=== PATIENT | female | born 1940 | race Caucasian/White ===

== ENCOUNTER → 2016-08-30 | Outpatient (CLI) | payer MEDICARE ==
--- NOTE | 2016-08-30 22:13 | PN ---
This patient is being seen in the sleep center in followup regarding her obstructive sleep apnea. The patient underwent a recent home sleep study to reevaluate the severity of her ALONZO. Note that on an earlier study the patient had an AHI of 8.7. Her most recent home sleep study showed significant nocturnal oxygen desaturation; the patient spent approximately a third of her sleep time with a pulse ox of 90% and below. She was also found to have an AHI of 20, which is consistent with moderately severe disease. She has chronic atrial fibrillation, hypertension and chronic aortic insufficiency along with fibromyalgia and hypothyroidism. I thought restarting CPAP therapy would be crucial. I checked her CPAP machine, which was set at a pressure of 5 cm of water. I activated the Auto IQ feature of the CPAP machine for the next 30 days and will identify the P90 pressure and make the appropriate adjustments accordingly. She will be going back on her CPAP therapy for now. Her current Harrison score is 7. Results of the home sleep study were discussed with the patient at length, and all of her questions were answered appropriately. BP is 144/76, pulse 56, respiration 16, temperature 96.6. Weight is 165.8. Harrison score is 7. Saturation 95% on room air. GENERAL APPEARANCE: Calm, comfortable. HEENT: Negative for JVD. There is no goiter or neck masses. LUNGS: Clear to auscultation. HEART: Sounds are regular rate and rhythm. Normal S1, S2. ABDOMEN: Soft, nontender. No organomegaly. EXTREMITIES: No edema. No cyanosis or clubbing. IMPRESSION: 1. Symptomatic obstructive sleep apnea, moderate in severity, worse compared to original sleep study, and currently her AHI is up to 20 and she has demonstrated significant nocturnal oxygen desaturation. The patient spent approximately a third of her sleep time with a pulse ox of 90% and below. 2. Coronary artery disease with previous myocardial infarction. 3. Aortic insufficiency. 4. Fibromyalgia. 5. Hypothyroidism. PLAN: 1. Active Auto IQ feature for the next 30 days and obtain a P90 pressure. 2. Use a DreamWear nasal pillow. 3. Encourage weight loss. 4. See me back in 30 days to identify the P90 pressure and treat accordingly.
== END | disposition home or self-care (01) ==
LOC: SLEEP 13:41
PROVIDERS: ATTEND Internal Medicine Critical Care Medicine
DX: G47.33 Obstructive sleep apnea (adult) (pediatric) (principal); I25.10 Atherosclerotic heart disease of native coronary artery without angina pectoris; I25.2 Old myocardial infarction; I35.1 Nonrheumatic aortic (valve) insufficiency; M79.7 Fibromyalgia; E03.9 Hypothyroidism, unspecified

== ENCOUNTER → 2016-09-27 | Outpatient (CLI) | payer MEDICARE ==
--- NOTE | 2016-09-27 20:17 | PN ---
This is a pleasant 76-year-old female patient with known history of obstructive sleep apnea. The patient had mild disease years back and a subsequent sleep study showed worsening in her sleep apnea; the patient's AHI was up to 20. At that point I gave the patient a trial of Auto IQ CPAP therapy for a total of 30 days, and today she is coming in for followup. The patient has felt much better with this current feature, which is an automatic CPAP therapy with a minimum pressure of 4 and maximum pressure of 20. P90 pressure is around 10. Her apnea-hypopnea index is down to 2.9, and the patient is averaging around 6 hours and 24 minutes of CPAP use every night. Treatment has been successful. She is benefitting from CPAP therapy. She is waking up refreshed and alert and her sleep quality has improved considerably. BP is 135/75, pulse 80, respiratory rate 16, temperature 98.1. Weight is 166. BMI is 30.8. GENERAL APPEARANCE: Calm, comfortable. HEENT: Negative for goiter or neck mass. LUNGS: Clear to auscultation. HEART: Sounds are regular rate and rhythm. Normal S1, S2. No S3. No S4. No murmurs. ABDOMEN: Soft, nontender. No organomegaly. EXTREMITIES: No edema. No cyanosis or clubbing. IMPRESSION: 1. Symptomatic obstructive sleep apnea with an AHI of 20. The patient has been successful on Auto CPAP titration with a P90 pressure of 10. We utilized the Auto IQ feature on her CPAP machine. 2. Hypersomnia, improved. 3. Coronary artery disease. 4. Hypertension. 5. Atrial fibrillation. 6. Fibromyalgia. 7. Aortic insufficiency. PLAN: 1. Put the patient on a CPAP pressure of 10 cm of water. 2. Use the Dream Patel nasal pillows. 3. Clinically improved. 4. Edema 5. Demand compliancy. 6. See me back in followup.
== END | disposition home or self-care (01) ==
LOC: SLEEP 14:01
PROVIDERS: ATTEND Internal Medicine Critical Care Medicine
DX: G47.33 Obstructive sleep apnea (adult) (pediatric) (principal); G47.10 Hypersomnia, unspecified; I25.10 Atherosclerotic heart disease of native coronary artery without angina pectoris; I10 Essential (primary) hypertension; I48.91 Unspecified atrial fibrillation; M79.7 Fibromyalgia; I35.1 Nonrheumatic aortic (valve) insufficiency

== ENCOUNTER → 2016-12-27 | Outpatient (CLI) | payer MEDICARE ==
--- NOTE | 2016-12-30 16:50 | PN ---
This is a 76-year-old patient seeing me in followup regarding obstructive sleep apnea. She was last here approximately 4 months ago. She has symptomatic obstructive sleep apnea with an AHI of 20 and currently she is on a CPAP pressure of 8 cm of water. Based on her compliancy data over the past 90 days, the patient has shown excellent CPAP use. The average CPAP use has been approximately 6 hours and 44 minutes. The percentage of days with CPAP usage of more than 4 hours is 97.8%. The patient's treatment has been successful, with her AHI being down to 2.1. Her current [place] score is 6. Her main complaint is that the CPAP unit is not offering adequate humidity and humidification. She is waking up with a dry mouth. She has increased humidity in the unit; however, she has encountered increased fluid accumulation within the tubing, and the dryness in her mouth and nose has remained unchanged. She is a nose breather for now and she is using a [employer] nasal pillow. She is very interested in updating her CPAP machine. I am ordering a new CPAP machine for this patient, as long as this is covered by her medical insurance. BP is 125/67, pulse 59, respirations 14, temperature 97.3, saturation 95% on room air. Weight is 164. Height is 5 feet 1 inch. [place] score is 6. BMI is 30.4. GENERAL APPEARANCE: Calm, comfortable. HEENT: Negative for JVD. No goiter or neck masses. LUNGS: Clear to auscultation. HEART: Sounds are regular rate and rhythm. Normal S1, S2. No S3, S4. No murmurs. ABDOMEN: Soft, non-tender. No organomegaly. EXTREMITIES: No edema. No cyanosis or clubbing. IMPRESSION: 1. Symptomatic obstructive sleep apnea with an AHI of 20. The patient's treatment is successful, and her AHI is down to 2.1. Nevertheless, she is having issues with humidity, with the humidification and excessive mouth dryness. She is very interested in upgrading her CPAP unit to a new-generation ResMed unit. 2. Hypersomnia, improved. 3. Coronary artery disease. 4. Hypertension. 5. Paroxysmal atrial fibrillation. 6. Fibromyalgia. 7. Aortic insufficiency. PLAN: I told this patient that her current CPAP unit is working appropriately and the treatment has been successful. Her main issue was the lack of humidification, and she wants to improve her comfort while on treatment. As such , I ordered a used CPAP unit which will be a ResMed auto unit set at a pressure of 8. She will see me back in 3 to 4 months' time if she is able to obtain this new CPAP unit. If not, she can go back to utilizing her original CPAP unit with further adjustments in her humidity level. Will see her back in a few months' time for further advice. CINTHYA
== END | disposition home or self-care (01) ==
LOC: SLEEP 13:01
PROVIDERS: ATTEND Internal Medicine Critical Care Medicine
DX: G47.33 Obstructive sleep apnea (adult) (pediatric) (principal); G47.10 Hypersomnia, unspecified

== ENCOUNTER → 2017-01-18 | Outpatient (CLI) | payer MEDICARE ==
--- NOTE | 2017-01-18 13:28 | MR ---
EXAMINATION TYPE: MR lumbar spine wo con DATE OF EXAM: 01/18/2017 COMPARISON: NONE HISTORY: Herniated disc and low back and right leg pain per order. Back and leg pain since June 03 per patient. TECHNIQUE: Multiplanar, multisequence imaging of the lumbar spine is performed without IV contrast. FINDINGS: Sagittal images of the lumbar spine show vertebral body heights to appear satisfactory. The re is grade 1 anterolisthesis of L3 on L4. Multilevel disc desiccation is present. There is multileve l mild disc space narrowing. Multilevel small posterior disc herniations are seen on sagittal images most prominent L3-L4 level at site of spondylolisthesis. The conus medullaris is normal in position and signal ending at T12-L1 disc space level. The bone marrow signal intensity is overall heterogene ous. Hemangioma superior anterior left L2 endplate is noted. Mild multilevel anterior spurring is pre sent. Axial images at the T12-L1 and L1-L2 levels to appear to be within normal limits. Axial images at L2-L3 level show broad-based posterior disc protrusion effacing anterior thecal sac. There is mild facet degenerative changes and ligament flavum hypertrophy effacing posterior lateral t hecal sac, right greater than left. There is mild to moderate right and mild left-sided anterior infe rior neural foraminal narrowing. Axial images at L3-L4 level show moderate broad disc bulge effacing anterior thecal sac. There is mil d to moderate facet degenerative changes and ligament flavum hypertrophy effacing posterior lateral t hecal sac. Spondylolisthesis is present. There is mild left greater than right anterior-inferior neur al foraminal narrowing at this level identified. Axial images at L4-L5 level show mild to moderate facet degenerative changes bilaterally. There is br oad-based posterior disc protrusion. There is effacement of anterior posterior lateral thecal sac. Th ere is mild bilateral anterior inferior neural foraminal narrowing at this level identified. Axial images at L5-S1 level show mild to moderate facet degenerative changes bilaterally. There is ce ntral disc protrusion seen. Spinal canal is preserved and bilateral neural foramina are patent. There is 2 cm simple appearing cyst posteriorly mid pole level right kidney on axial image 17. There is prominence of bilateral renal pelvis, right greater than left suspect extrarenal pelvis. Slight ri ght-sided calyceal fullness is seen. Cannot exclude mild right-sided hydronephrosis. Consider ultraso und follow-up. IMPRESSION: Multilevel degenerative changes in the mid to lower lumbar spine as detailed above. Most prominent spinal canal effacement or stenosis is noted L3-L4 level. Further details are noted as disc ussed in body of report. Attention to kidneys discussed and end of report.
== END | disposition home or self-care (01) ==
LOC: RADMRIMAIN 12:09
PROVIDERS: ATTEND Psychiatry & Neurology Neurology
DX: M47.816 Spondylosis without myelopathy or radiculopathy, lumbar region (principal)
CPT/HCPCS: 72148

== ENCOUNTER → 2017-03-21 | Outpatient (CLI) | payer MEDICARE ==
--- NOTE | 2017-03-21 15:48 | PN ---
PROGRESS NOTE A 76-year-old female patient coming in for a compliancy check regarding ALONZO treatment. The patient has moderate to severe disease with an AHI of 20. The patient has been treated with a CPAP pressure of 8 cm of water. I saw this patient in December and I am seeing her today in followup after being given a new CPAP machine. His CPAP pressure was kept the same and the patient is using a Dream[employer] nasal pillow. She is using her CPAP every night. Her CPAP use for the past 30 days is above 95%. Average CPAP is around 7.5 hours per night. Her leak factor is 24 L/min and her AHI while on treatment is down to 1.7. She is benefitting from treatment and her Orland score is down to 5. Her weight has been stable. Her humidity, tube control and ramp time is automatic. She has no specific complaints for now. No other significant events over the past 24 hours. Her current vital signs: BP is 138/77, pulse 60, respirations 16, temperature is 98.3, Orland score is 5. Saturation is 95% on room air. Weight is 163. GENERAL APPEARANCE: Calm, comfortable. HEENT: Head is atraumatic, normocephalic. Neck is supple. There is no JVD, no goiter or neck masses. She has a Mallampati class IV. Lungs clear to auscultation. Heart sounds regular rate and rhythm. Normal S1, S2. No S3. No murmurs. Abdomen is soft, nontender. No organomegaly. Extremities no edema. No cyanosis or clubbing. Skin is negative. Neurologic, she is awake and alert x3, rule out any focal neurological deficits. IMPRESSION 1. Symptomatic obstructive sleep apnea with an apnea-hypopnea index of 20, currently on successful CPAP therapy at a pressure of 8 cm of water. The patient has a newer generation ResMed CPAP unit. 2. Hypersomnia improved and the Orland score is down to 5. 3. Coronary artery disease. 4. Hypertension. 5. Paroxysmal atrial fibrillation. 6. Fibromyalgia. 7. Aortic insufficiency. PLAN: 1. Continue CPAP with a pressure of 8. 2. Compliancy check was done and the data was reviewed. 3. Encourage weight loss. 4. Maintaining good sleep hygiene measures. 5. Treatment was successful and the patient is benefiting from treatment. See me back in a year's time or follow up earlier if needed. MMODL / IJN: [id number] /
== END | disposition home or self-care (01) ==
LOC: SLEEP 13:57
PROVIDERS: ATTEND Internal Medicine Critical Care Medicine
DX: G47.33 Obstructive sleep apnea (adult) (pediatric) (principal); G47.10 Hypersomnia, unspecified; I25.10 Atherosclerotic heart disease of native coronary artery without angina pectoris; I10 Essential (primary) hypertension; I48.0 Paroxysmal atrial fibrillation; M79.7 Fibromyalgia; I35.1 Nonrheumatic aortic (valve) insufficiency

== ENCOUNTER → 2018-05-15 | Outpatient (CLI) | payer MEDICARE ==
--- NOTE | 2018-05-15 17:12 | PN ---
PROGRESS NOTE 78-year-old female patient coming in for a compliancy check regarding her ALONZO treatment. This is her annual check up. Patient was last seen here approximately 1 1/2 years back. She has moderate to severe ALONZO with an AHI of 20 and the patient is currently on CPAP therapy. She has a ResMed unit and she is set on an APAP mode. Based on the compliance data, she is wearing her a APAP every night. Her compliance has been 100% and she is averaging more than 5 hours of a APAP use per night. She has lost weight in the order of 10 pounds. She used to weigh 164, she is currently down to 153. Her cardiac rhythm is still sinus. She is using a DreamWear small-size mask. Leak factor is 18 L/minute. AHI while on treatment is down to 0.8. No other complaints otherwise for now. BP is 137/73, pulse 56, respirations 16, temperature 97.2. Saturation 97% on room air. Weight is 154. Height is 5 feet 1 inches. General appearance: Calm, comfortable. Head is atraumatic, normocephalic. Neck is supple. There is no JVD. No goiter or neck masses. LUNGS: Clear to auscultation. Heart sounds are regular rate and rhythm. Normal S1, S2. No S3. No murmurs. Abdomen is soft, nontender. No organomegaly. EXTREMITIES: No edema. No cyanosis or clubbing. IMPRESSION: 1. Obstructive sleep apnea AHI of 21, currently on a APAP with a DreamWear small-size mask. Treatment has been successful. 2. Paroxysmal atrial fibrillation, current rhythm is sinus. 3. Coronary artery disease. 4. Hypertension. 5. Fibromyalgia. 6. Aortic insufficiency. PLAN: 1. Renew supplies. 2. Treatment is successful. 3. See me back in a year's time in follow up. MMODL / IJN: [id number] /
== END ==
LOC: SLEEP 13:01
PROVIDERS: ATTEND Internal Medicine Critical Care Medicine
DX: G47.33 Obstructive sleep apnea (adult) (pediatric) (principal); I48.0 Paroxysmal atrial fibrillation; I25.10 Atherosclerotic heart disease of native coronary artery without angina pectoris; I10 Essential (primary) hypertension; M79.7 Fibromyalgia; I35.1 Nonrheumatic aortic (valve) insufficiency; Z99.89 Dependence on other enabling machines and devices

== ENCOUNTER → 2019-05-21 | Outpatient (CLI) | payer MEDICARE ==
--- NOTE | 2019-05-21 17:18 | PN ---
PROGRESS NOTE Tani is 79 and she is coming in for a routine compliancy check regarding obstructive sleep apnea. The patient is looking well. Since her last evaluation, the patient has developed again atrial fibrillation and she has been followed up with Cardiology. She is being considered for ablation. She has been told by her EP artificial breeding technician that she may end up requiring a pacemaker post ablation. For now, her cardiac rhythm is atrial fibrillation and she is on a combination of medication, including metoprolol, Cardizem, Avapro for blood pressure and Aldactone. She is on long-term anticoagulation with Eliquis. In regard to her compliancy on her CPAP, the patient utilizes her CPAP every night on an average of 7.7 hours per night. CPAP use for more than 4 hours . Nevertheless, the patient's efficacy of treatment has gotten worse since her last evaluation. Her AHI while on treatment is at 8.7. Her leak is at 20 L/minute for now. She is using a DreamWear [id number] mask. I noticed that she was very well treated approximately a year ago; her AHI was less than 5. Over the past year she gradually developed some respiratory events. Nevertheless, based on her current CPAP machine I am unable to tell whether these are obstructive or central events. Her CPAP pressure is still adjusted at 8 cm of water. Otherwise she has no other complaints. She is waking up in the billet driller hours with hypertension. Immediately after she wakes up she checks her blood pressure and she is noted to have a significantly elevated BP. Obviously this would further raise the concern whether her sleep apnea has been effectively treated and whether she is having obstructive respiratory events in the billet driller hours. Her current Thomas Score is 6. REVIEW OF SYSTEMS: Fourteen-point review of systems was done. Positive findings were all mentioned above in the history of present illness. There is history of recent weight gain. She used to weigh 154 and currently she is up to 162. She was doing Weight Watchers but she has currently lost her diet control. As such, she has gained some weight. No nausea. No vomiting. No chest pain. Elevated blood pressure in the billet driller hours. At times she is having palpitations related to atrial fibrillation. No swelling in the lower extremities. Otherwise 14-point review of systems was done, and the positive findings are all mentioned above in the history of present illness. PHYSICAL EXAMINATION: VITAL SIGNS: BP is 132/82, pulse 56, respirations 16, temperature 97.5. Saturation 95% on room air. Height is 5 feet . Weight is 162. Thomas Score is 6. BMI 30.6. GENERAL APPEARANCE: Calm, comfortable. HEAD: Atraumatic, normocephalic. NECK: Supple. No JVD. No goiter or neck masses. LUNGS: Clear to auscultation. HEART: Heart sounds are irregular. Positive S1, S2. No S3, S4. No murmurs. ABDOMEN: Soft, nontender. No organomegaly. EXTREMITIES: No edema. No cyanosis or clubbing. NEUROLOGIC: Alert and oriented x3. No focal neurological deficits. PSYCHIATRIC: Negative for anxiety or depression. IMPRESSION: 1. Obstructive sleep apnea; apnea/hypopnea index of 20. Currently on CPAP pressure of 8. 2. grove superintendent hypertensive reaction. Exact cause is not clear. It could be related to obstructive respiratory events, especially as the patient's AHI while on treatment currently is 8.7, and this is based on the data was collected over the past 30 days. 3. Paroxysmal atrial fibrillation. Currently the patient is back to atrial fibrillation rhythm and she is being contemplated for ablation. This raises the possibility of central respiratory events that may be occurring overnight while on CPAP therapy. 4. Hypertension. 5. Coronary artery disease. PLAN: 1. I asked the patient to continue her CPAP therapy at a pressure of 8. 2. No adjustment in the pressure setting will be done. 3. The patient will be undergoing ablation. 4. If the hypertensive reaction continues to occur in the morning hours and if the patient continues to have elevated AHI, I would suggest undergoing a CPAP titration again to make sure she is effectively treated and there is no emergence of any obstructive or central events while on treatment. Will continue to follow. The patient will see me back in followup. MMODL / IJN: [id number] /
== END | disposition home or self-care (01) ==
LOC: SLEEP 13:52
PROVIDERS: ATTEND Internal Medicine Critical Care Medicine
DX: G47.33 Obstructive sleep apnea (adult) (pediatric) (principal); I48.0 Paroxysmal atrial fibrillation; I10 Essential (primary) hypertension; I25.10 Atherosclerotic heart disease of native coronary artery without angina pectoris; Z99.89 Dependence on other enabling machines and devices

== ENCOUNTER → 2020-11-10 | Outpatient (CLI) | payer MEDICARE ==
--- NOTE | 2020-11-10 17:19 | PN ---
PROGRESS NOTE This patient is 80 years old, coming in for an annual check regarding obstructive sleep apnea. Note that the patient has moderate to severe ALONZO with an AHI of 20. The patient was treated with a CPAP pressure of 8 cm of water. She is doing well. She has been infected and recovered from COVID-19 and so has her . She has been averaging around 7.3 hours of CPAP use per night. Based on 30-day compliance data collection, she has averaged more than 4 hours 75% of the time. She has no major leaks around the mask and she is using the AirFit N30I [id number] mask for now. Her AHI while on treatment is down to 2.5. Her body weight has been essentially stable and she is still maintaining 165 pounds of body weight. Howell score is at 5. No major hypersomnia or sleepiness. On two separate occasions when she forgot to use her CPAP, she felt well and she did not see any major difference while on and off the treatment. She is obviously requesting re-evaluation. Her cardiac condition is stable and the patient's rhythm is sinus; she underwent another ablation. No pacemaker insertion at this point in time. MEDICATION: Medication includes: 1. Avapro 300 mg p.o. daily. 2. Lopressor 25 mg twice a day. 3. Cardizem 240 mg p.o. daily. 4. Eliquis 5 mg p.o. daily. 5. Levothyroxine 88 mcg p.o. daily. 6. Aldactone 25 mg p.o. daily. 7. Aspirin 81 mg p.o. daily. DRUG ALLERGIES: NOVOCAINE and DIGOXIN. SURGICAL HISTORY: Surgical history includes hysterectomy, , cardiac ablation for atrial fibrillation, and resection of a right arm lymphoma. REVIEW OF SYSTEMS: Fourteen-point review of systems was done. Positive findings are all mentioned above in the history of present illness. No other new-onset medical problems or comorbidities since her last evaluation here in the office. PHYSICAL EXAMINATION: VITAL SIGNS: Her current vital signs are as follows: blood pressure 134/74, pulse 56, respirations 16, temperature 97.6, saturation 97% on room air. Howell score of 5. Height is 5 feet 1 inch, weight 165, BMI 30.6. GENERAL APPEARANCE: Calm, comfortable. HEAD: Atraumatic, normocephalic. NECK: Supple. No JVD. No goiter or neck masses. LUNGS: Diminished; otherwise clear. HEART: Heart sounds are regular rate and rhythm. Normal S1, S2. No S3, S4. No murmurs. ABDOMEN: Soft, nontender. No organomegaly. EXTREMITIES: No edema. No cyanosis or clubbing. IMPRESSION: 1. Obstructive sleep apnea, AHI of 20, currently on CPAP at the pressure of 8 cm of water. Clinically asymptomatic. Requesting re-evaluation. 2. Hypertension, stable. 3. Paroxysmal atrial fibrillation post cardiac ablation, stable. Still on long-term anticoagulation with Eliquis. Her current rhythm is sinus. 4. Hypertension. 5. Coronary artery disease. PLAN: 1. Continue CPAP therapy at the same level of pressure. 2. Keep the same mask interface. 3. Proceed with another home sleep study to re-evaluate the presence of obstructive sleep apnea and decide if treatment is needed. She is going to undergo home sleep study testing. MMODL / IJN: [id number] /
== END ==
LOC: SLEEP 13:01
PROVIDERS: ATTEND Internal Medicine Critical Care Medicine
DX: G47.33 Obstructive sleep apnea (adult) (pediatric) (principal); I10 Essential (primary) hypertension; I48.0 Paroxysmal atrial fibrillation; Z79.01 Long term (current) use of anticoagulants; I25.10 Atherosclerotic heart disease of native coronary artery without angina pectoris; Z88.6 Allergy status to analgesic agent; Z88.3 Allergy status to other anti-infective agents